=== PATIENT | male | born 1990 | race Caucasian/White ===

== ENCOUNTER 2020-12-25 11:13 | Day surgery (SDC) | payer SELFPAY ==
[2020-12-25] VITALS (11 sets, daily range): BP systolic 117–134; BP diastolic 46–93; PULSE 56–110; RESP 14–18; TEMP 36.1–36.4; O2SAT 93–100; BMI 29.1
--- NOTE | ~2020-12-25 | CT_ITS ---
EXAMINATION: CT ABDOMEN AND PELVIS WITHOUT CONTRAST CLINICAL INFORMATION: Left flank pain. COMPARISON: None TECHNIQUE: Multidetector volumetric imaging was performed from the superior aspect of the liver through the pubic symphysis. Sagittal and coronal reformatted images were obtained on the technologist's workstation. This CT examination was performed using dose optimization techniques as appropriate, variously including the following: *Automated exposure control *Adjustment of mA and/or kV according to patient size (this includes techniques or standardized protocols for targeted exams where dose is matched to indication/reason for exam; i.e. extremities or head) *Use of iterative reconstruction technique DLP: 625 mGy-cm FINDINGS: LUNG BASES: The visualized lung bases are unremarkable. LIVER, GALLBLADDER, AND BILIARY TREE: The liver is normal in size, shape, and attenuation. No focal hepatic lesion or biliary ductal dilatation is present. The gallbladder is unremarkable with no evidence of radiopaque gallstones, gallbladder wall thickening, or obvious pericholecystic inflammatory changes. PANCREAS: Unremarkable. SPLEEN: Unremarkable. ADRENAL GLANDS: Unremarkable. KIDNEYS AND URETERS: The kidneys are normal in size, shape, and attenuation. No hydronephrosis, hydroureter, or calculi seen. No perinephric stranding. BLADDER: Unremarkable. GASTROINTESTINAL TRACT: No bowel wall thickening or associated inflammatory change. No small or large bowel obstruction. The appendix is dilated with fluid and stool (coronal image 28/78, axial image 64/94). Minimal if any adjacent inflammatory change. Findings could indicate very early appendicitis. No extraluminal air or organized fluid collection to suggest perforation or abscess formation. PERITONEAL CAVITY: No intra-abdominal free air or free fluid. No intra-abdominal mass or organized fluid collection/abscess formation. ABDOMINAL WALL: No significant hernia is appreciated. LYMPH NODES: Normal. VASCULAR: Unremarkable. PELVIC VISCERA: The prostate and seminal vesicles are unremarkable. OSSEOUS STRUCTURES: Transitional anatomy with sacralization of L1. No acute osseous abnormality. CT/CT abdomen pelvis wo con IMPRESSION: Dilatation of the appendix which is fluid-filled with internal stool. Minimal if any adjacent inflammatory change. Findings could indicate very early appendicitis. No evidence of perforation or abscess formation.
--- NOTE | 2020-12-25 13:05 | ED_ITS ---
HPI - Abdominal Pain General Chief Complaint: Abdominal Pain Stated Complaint: ABD PAIN Time Seen by Provider: 12/25/20 13:05 Source: patient Mode of arrival: EMS Limitations: no limitations History of Present Illness MD elicited complaint: abdominal pain Pertinent past history: none Onset (ago): hour(s) (3) Pain Consistency: constant Location: RLQ, LLQ and L flank Severity: moderate Quality: stabbing Radiation: none Migration to: no migration Exacerbating factors: movement Relieving factors: nothing Associated symptoms: nausea and vomiting Related Data Home Medications Medication Instructions Recorded Confirmed No Known Home Meds 12/25/20 12/25/20 Allergies Allergy/AdvReac Type Severity Reaction Status Date / Time Penicillins Allergy Hives Verified 12/25/20 11:34 Review of Systems Review of Systems Constitutional : No Weight loss, No Fever, No Chills ENT/Mouth : No sore throat, No Rhinorrhea Eyes: No Swelling, No Redness Cardiovascular : No Chest Pain, No SOB, NoEdema Respiratory : No Cough, No Sputum, No Wheezing Gastrointestinal : Positive Nausea, Positive Vomiting, no Diarrhea, positive abdominal Pain, No Hematochezia, No Melena Genitourinary : No Dysuria, No Urinary Frequency, No Hematuria, No Urgency Musculoskeletal : No joint pain, No Myalgias, No Joint Swelling Skin : No Skin Lesions, No rash Neuro : No Weakness, No Numbness, No Dizziness, No Headache Psych : No Anxiety/Panic, No Depression Heme/Lymph: No Bruising, No Lymphadenopathy Endocrine : No Polyuria, No Polydipsia All other systems reviewed and are negative. Physical Exam Vital Signs: Vital Signs: Last Vital Signs Temp 97.4 F 12/25/20 11:34 Pulse 56 12/25/20 13:30 Resp 16 12/25/20 13:30 BP 123/59 L 12/25/20 13:30 Pulse Ox 99 12/25/20 13:30 Body Mass Index 29.1 Appearance: Alert. Oriented X3. in pain mild acute distress. Eyes: Pupils equal, round and reactive to light. ENT: Pharynx normal. Neck: Normal inspection. Neck supple. CVS: Normal heart rate and rhythm. Pulses normal. Respiratory: No respiratory distress. Breath sounds normal. Abdomen: Soft and moderate ttp in LLQ and RLQ no rebound mild vol guarding Skin: Skin warm and dry. Normal skin color. Normal skin turgor. Extremities: No lower extremity edema. No calf ttp Neuro: Oriented X 3. No motor deficit. No sensory deficit. Course Course Course Narrative: message sent to Dr. Still given CT scan plan for OR - allergy to PCN given flagyl/levofloxacin MDM - Abdominal Pain MDM Narrative Medical decision making narrative: 30 yo male abrupt onset lower abdominal pain and n/v - very tender in LLQ and RLQ with L flank pain - somewhat unusual for appendicitis at this time labs, UA, IVF, CT scan for renal colic, IV morphine for pain dispo per results and findings. Differential Diagnosis Differential diagnosis: Likely abdominal pain, acute appendicitis, calculus of kidney and diverticulitis Lab Data Result diagrams: 12/25/20 13:27 12/25/20 13:27 Labs: Lab Results 12/25/20 12/25/20 12/25/20 Range/Units 13:27 13:27 14:09 WBC 22.8 H (4.8-10.8) X10*3/uL RBC 4.25 L (4.60-5.80) X10*6/uL Hgb 13.6 L (14.0-18.0) g/dl Hct 40.3 L (42-52) % MCV 94.8 (80-98) fL MCH 32.0 (27.0-33.0) pg MCHC 33.7 (31.0-36.0) g/dl RDW 11.8 (11.0-16.0) % Plt Count 303 (160-400) X10*3/uL MPV 9.7 (9.4-12.4) fL Immature Gran % (Auto) 0.6 H (0.0-0.4) % Neut % (Auto) 89.9 H (45-73) % Lymph % (Auto) 5.3 L (20-40) % [place] % (Auto) 4.0 (2-11) % Eos % (Auto) 0.0 (0-4) % Baso % (Auto) 0.2 (0-2) % Lymph # (Auto) 1.2 (1.2-4.9) X10*3/uL [place] # (Auto) 0.9 (0.1-1.2) X10*3/uL Eos # (Auto) 0.0 (0.0-0.4) X10*3/uL Baso # (Auto) 0.1 (0.0-0.2) X10*3/uL Abs Immat Gran (auto) 0.13 H (0.00-0.03) X10*3/uL Absolute Neuts (auto) 20.5 H (2.0-8.3) X10*3/uL Absolute Nucleated RBC 0.000 (0.0-0.012) X10*3/uL Nucleated RBC % (auto) 0.0 (0.0-0.2) /100WBC Smear Tech's Comments VERIFIED PT (9.9-13.0) SEC INR (0.9-1.1) APTT (24.1-38.0) SEC Sodium 138 (135-145) mmol/L Potassium 3.6 (3.3-5.1) mmol/L Chloride 103 (96-108) mmol/L Carbon Dioxide 22 (22-29) mmol/L Anion Gap 17 (12-20) BUN 13 (9-16) mg/dL Creatinine 0.85 (0.5-1.4) mg/dL Estim Creat Clear Calc 150.7 Estimated GFR > 60 Random Glucose 107 (60-115) mg/dL Lactic Acid 1.3 (0.5-2.0) mmol/L Calcium 9.4 (8.4-10.2) mg/dL Magnesium 2.1 (1.6-2.6) mg/dL Total Bilirubin 0.9 (0.0-1.0) mg/dL Direct Bilirubin 0.3 (0.0-0.5) mg/dL AST 89 H (5-37) U/L ALT 49 H (0-40) U/L Alkaline Phosphatase 58 (39-117) U/L Total Protein 7.5 (6.5-8.0) g/dL Albumin 4.5 (3.5-5.0) g/dL Lipase 13 (8-78) U/L COVID-19 ([facility]) (Negative) COVID-19 Clin Com 12/25/20 12/25/20 Range/Units 14:09 14:32 WBC (4.8-10.8) X10*3/uL RBC (4.60-5.80) X10*6/uL Hgb (14.0-18.0) g/dl Hct (42-52) % MCV (80-98) fL MCH (27.0-33.0) pg MCHC (31.0-36.0) g/dl RDW (11.0-16.0) % Plt Count (160-400) X10*3/uL MPV (9.4-12.4) fL Immature Gran % (Auto) (0.0-0.4) % Neut % (Auto) (45-73) % Lymph % (Auto) (20-40) % [place] % (Auto) (2-11) % Eos % (Auto) (0-4) % Baso % (Auto) (0-2) % Lymph # (Auto) (1.2-4.9) X10*3/uL [place] # (Auto) (0.1-1.2) X10*3/uL Eos # (Auto) (0.0-0.4) X10*3/uL Baso # (Auto) (0.0-0.2) X10*3/uL Abs Immat Gran (auto) (0.00-0.03) X10*3/uL Absolute Neuts (auto) (2.0-8.3) X10*3/uL Absolute Nucleated RBC (0.0-0.012) X10*3/uL Nucleated RBC % (auto) (0.0-0.2) /100WBC Smear Tech's Comments PT 12.3 (9.9-13.0) SEC INR 1.1 (0.9-1.1) APTT 37.8 (24.1-38.0) SEC Sodium (135-145) mmol/L Potassium (3.3-5.1) mmol/L Chloride (96-108) mmol/L Carbon Dioxide (22-29) mmol/L Anion Gap (12-20) BUN (9-16) mg/dL Creatinine (0.5-1.4) mg/dL Estim Creat Clear Calc Estimated GFR Random Glucose (60-115) mg/dL Lactic Acid (0.5-2.0) mmol/L Calcium (8.4-10.2) mg/dL Magnesium (1.6-2.6) mg/dL Total Bilirubin (0.0-1.0) mg/dL Direct Bilirubin (0.0-0.5) mg/dL AST (5-37) U/L ALT (0-40) U/L Alkaline Phosphatase (39-117) U/L Total Protein (6.5-8.0) g/dL Albumin (3.5-5.0) g/dL Lipase (8-78) U/L COVID-19 ([facility]) Negative (Negative) COVID-19 Clin Com See Note Critical Care Time Critical Care Time Critical Care Time: Yes Total Critical Care Time: 35 Attestation: IVF, IV pain medications, medical consult I attest to this time spent taking care of the patient Discharge Plan Discharge Clinical Impression: Acute appendicitis, Leukocytosis Patient Disposition: Admitted As Inpatient [facility] Past Medical History Medical History No pertinent past medical history Social History Social History Advance Directives: Yes Advance Directives Information Provided: Yes Advance Directives on File: No
[2020-12-25] MEDS: 0.9 % Sodium Chloride 1,000 ML 999 ML IVCONT (13:27)
[2020-12-25] MEDS: Morphine Sulfate 4 MG/ML CARTRIDGE IVPUSH (13:27)
[2020-12-25] MEDS: Ketorolac Tromethamine 15 MG/ML VIAL IVPUSH (13:27)
[2020-12-25] MEDS: ondansetron HCL 4 MG/2 ML VIAL IVPUSH ×2 (13:27→15:28)
[2020-12-25 13:46] LABS: Basophils Absolute Auto 0.1 X10*3/uL (0.0-0.2); Basophils Percent Auto 0.2 % (0-2); Hematocrit 40.3 % (42-52); Hemoglobin 13.6 g/dl (14.0-18.0); Imm Gran Abs Auto 0.13 X10*3/uL (0.00-0.03); Imm Gran Pct Auto 0.6 % (0.0-0.4); Lymphocytes Absolute Auto 1.2 X10*3/uL (1.2-4.9); Lymphocytes Percent Auto 5.3 % (20-40); MANUAL DIFF FLAG SCAN; Mean Corpuscular HGB Conc 33.7 g/dl (31.0-36.0); Mean Corpuscular Volume 94.8 fL (80-98); Mean Platelet Volume 9.7 fL (9.4-12.4); Monocytes Absolute Auto 0.9 X10*3/uL (0.1-1.2); Neutrophils Absolute Auto 20.5 X10*3/uL (2.0-8.3); Neutrophils Percent Auto 89.9 % (45-73); Platelet Count 303 X10*3/uL (160-400); Red Blood Count 4.25 X10*6/uL (4.60-5.80); Red Cell Distribution Width 11.8 % (11.0-16.0); SCAN SMEAR FLAG 1; White Blood Count 22.8 X10*3/uL (4.8-10.8)
[2020-12-25 14:21] LABS: SLIDE REVIEW VERIFIED
[2020-12-25 14:22] LABS: Alanine Aminotransferase 49 U/L (0-40); Albumin Level 4.5 g/dL (3.5-5.0); Alkaline Phosphatase 58 U/L (39-117); Anion Gap 17 (12-20); Aspartate Amino Transferase 89 U/L (5-37); Bilirubin Direct 0.3 mg/dL (0.0-0.5); Bilirubin Total 0.9 mg/dL (0.0-1.0); Blood Urea Nitrogen 13 mg/dL (9-16); Calcium 9.4 mg/dL (8.4-10.2); Carbon Dioxide 22 mmol/L (22-29); Chloride 103 mmol/L (96-108); Creatinine Clr Calc Pharmacy 150.7; Estimated Glomerular Filt Rate > 60; Glucose Random 107 mg/dL (60-115); Lipase 13 U/L (8-78); Magnesium 2.1 mg/dL (1.6-2.6); Potassium 3.6 mmol/L (3.3-5.1); Sodium 138 mmol/L (135-145); Total Protein 7.5 g/dL (6.5-8.0)
--- NOTE | 2020-12-25 14:32 | PHA.MEDREC ---
MED REC COMPLETE, PATIENT NOT ON ANY MEDICATIONS Pharmacy Consult ? Medication Reconciliation Pharmacy has completed the medication reconciliation.
[2020-12-25] MEDS: metroNIDAZOLE/NS 500 MG/100 ML PIGGYBACK 100 MG IV (14:33)
[2020-12-25 14:35] LABS: COVID-19 Test Negative (Negative)
[2020-12-25 14:42] LABS: Lactic Acid 1.3 mmol/L (0.5-2.0)
[2020-12-25 14:55] LABS: INTERNATIONAL NORM RATIO 1.1 (0.9-1.1); Prothrombin Time 12.3 SEC (9.9-13.0)
[2020-12-25 14:58] LABS: Partial Thromboplastin Time 37.8 SEC (24.1-38.0)
--- NOTE | 2020-12-25 15:07 | P.HPGS_ITS ---
History of Present Illness History of Present Illness Date of Service: 12/25/20 Chief complaint: ABD PAIN Narrative: Nato Lam is a 30 year old male presenting with complaints of abdominal pain in the lower abdomen. The pain began suddenly approximately 9 a.m. this morning in the lower abdomen and periumbilical region. The pain was initially sharp and is now radiating to the left and right lower quadrants. He he reports nausea and vomiting and vomited in the waiting room today. He was peripherally healthy prior to this episode. He reports feeling hot and feverish with chills. He denies any sick contacts. He presented to the emergency department was noted to have tenderness in the right lower quadrant. WBC was markedly elevated at [address] of the abdomen revealed a distended appendix without evidence of perforation or abscess. Findings were suggestive of an early appendicitis. He is admitted to the surgical service for further management of the acute appendicitis. Review of Systems Review of Systems: Yes all other systems are reviewed and are negative Constitutional: Constitutional: Reports chills, Reports fever(s) and Reports poor appetite Cardiovascular: Cardiovascular: Denies chest pain Respiratory: Respiratory: Denies chest congestion and Denies cough Gastrointestinal: Gastrointestinal: Reports abdominal pain, Reports bloating, Denies diarrhea, Denies loose stools, Reports nausea and Reports vomiting Genitourinary: Genitourinary: Reports no additional male genitourinary complaints Musculoskeletal: Musculoskeletal: Reports no additional musculoskeletal complaints Integumentary/Breasts: Skin/Breast: Reports system reviewed and no additional complaints, except as docu PMFSH Past Medical History Medical History No pertinent past medical history Social History Social History Advance Directives: Yes Advance Directives Information Provided: Yes Advance Directives on File: No Meds Allergies Allergy/AdvReac Type Severity Reaction Status Date / Time Penicillins Allergy Hives Verified 12/25/20 11:34 Active Medications: Current Medications Generic Name Dose Route Start Last Admin Trade Name Freq PRN Reason Stop Dose Admin Levofloxacin 500 mg in 100 mls @ 100 mls/hr 12/25/20 14:20 Levaquin IV 12/25/20 15:19 ONCE ONE Metronidazole 500 mg in 100 mls @ 100 mls/hr 12/25/20 14:20 12/25/20 14:33 Flagyl IV 12/25/20 15:19 100 mls/hr ONCE ONE Administration Lactated Ringer's 1,000 mls @ 100 mls/hr 12/25/20 15:15 Lr IVCONT .Q10H [facility] Pharmacy Consult 1 each 12/25/20 14:23 Consult Rx Perform Med Rec MISCELLANE ONCE PRN Consult order Home Medications Medication Instructions Recorded Confirmed Last Taken Type No Known Home Meds 12/25/20 12/25/20 Unknown History Physical Exam Vital Signs: Vital Signs: Last Vital Signs Temp 97.4 F 12/25/20 11:34 Pulse 56 12/25/20 13:30 Resp 16 12/25/20 13:30 BP 123/59 L 12/25/20 13:30 Pulse Ox 99 12/25/20 13:30 Body Mass Index 29.1 Const: General: in distress and ill appearing Nutritional Appearance: well nourished Orientation/consciousness: patient oriented x3 Limitations: no limitations Neck: Neck: Yes no lymphadenopathy and Yes trachea midline Resp: Effort & Inspection: normal respiratory effort Auscultation: clear to auscultation bilaterally Cardio: Rate: regular rate Rhythm: regular rhythm Heart sounds: S1 normal heart sound present and S2 normal heart sound present GI: Inspection: Yes normal to inspection Palpation (GI): Soft to palpation and Tenderness to palpation present (GI) in the RLQ and at McBurney's point Percussion: Yes normal to percussion Auscultation: normal bowel sounds Rectal Exam - Male: Yes deferred Skin: General skin exam: no rashes or lesions noted Neuro: General: patient oriented x3 Extrem: General: Yes no clubbing, cyanosis or edema Results Results Labs: Short CBC 12/25/20 Range/Units 13:27 WBC 22.8 H (4.8-10.8) X10*3/uL Hgb 13.6 L (14.0-18.0) g/dl Hct 40.3 L (42-52) % Plt Count 303 (160-400) X10*3/uL BMP 12/25/20 13:27 Sodium 138 Potassium 3.6 Chloride 103 Carbon Dioxide 22 BUN 13 Creatinine 0.85 Calcium 9.4 Liver Function 12/25/20 Range/Units 13:27 Total Bilirubin 0.9 (0.0-1.0) mg/dL Direct Bilirubin 0.3 (0.0-0.5) mg/dL AST 89 H (5-37) U/L ALT 49 H (0-40) U/L Alkaline Phosphatase 58 (39-117) U/L Albumin 4.5 (3.5-5.0) g/dL Abdomen CT scan report/results: image reviewed Assessment and Plan (1) Acute appendicitis: Qualifiers: Acute appendicitis type: other Qualified Code(s): K35.890 - Other acute appendicitis without perforation or gangrene Status: Acute 30-year-old male patient presenting with acute onset of abdominal pain found to have a thickened dilated appendix and a markedly elevated WBC. On examination he is tender in the right lower quadrant with findings consistent with acute appendicitis. We discussed management with IV antibiotics verses laparoscopic or possible open appendectomy. After discussion of the procedure, risks, and alternatives, he consents to the laparoscopic or possible open appendectomy. He has been added to the operative schedule for today. Quality Stroke Does the patient have a stroke diagnosis?: No VTE Prior VTE?: No VTE Risk Level:: Surgical - low VTE Device Contraindication: N/A - Device Ordered VTE Drug Contraindication: Treatment Not Indicated Procedures Date of Service Date of Service: 12/25/20
[2020-12-25] MEDS: levoFLOXacin/D5W 500 MG/100 ML PIGGYBACK 100 MG IV (15:27)
--- NOTE | 2020-12-25 16:38 | P.CONAN_ITS ---
[facility] Active Problems Active Problems: All Active Problems (Updated 12/25/20 @ 15:49 by Mary peoples DO) Acute appendicitis (Acute) Leukocytosis (Acute) Past Medical History Medical History No pertinent past medical history Surgical History History of Problems with Anesthesia: No Social History Social History Advance Directives: Yes Advance Directives Information Provided: Yes Advance Directives on File: No Meds Allergies Allergy/AdvReac Type Severity Reaction Status Date / Time Penicillins Allergy Hives Verified 12/25/20 11:34 Active Medications: Current Medications Generic Name Dose Route Start Last Admin Trade Name Freq PRN Reason Stop Dose Admin Lactated Ringer's 1,000 mls @ 100 mls/hr 12/25/20 15:15 Lr IVCONT .Q10H [facility] Pharmacy Consult 1 each 12/25/20 14:23 Consult Rx Perform Med Rec MISCELLANE ONCE PRN Consult order Home Medications Medication Instructions Recorded Confirmed Last Taken Type No Known Home Meds 12/25/20 12/25/20 Unknown History Exam Exam Date and Time: December 25, 2020 1638 Height,Weight and Vital Signs: Height 5 ft 11 in Weight 94.801 kg Last Vital Signs Temp 97.4 F 12/25/20 11:34 Pulse 56 12/25/20 13:30 Resp 16 12/25/20 13:30 BP 123/59 L 12/25/20 13:30 Pulse Ox 99 12/25/20 13:30 Pertinent Lab Results Pertinent Lab Results: Laboratory Tests 12/25/20 12/25/20 12/25/20 13:27 13:27 14:09 WBC 22.8 H RBC 4.25 L Hgb 13.6 L Hct 40.3 L MCV 94.8 MCH 32.0 MCHC 33.7 RDW 11.8 Plt Count 303 MPV 9.7 Immature Gran % (Auto) 0.6 H Neut % (Auto) 89.9 H Lymph % (Auto) 5.[address] [place] % (Auto) 4.0 Eos % (Auto) 0.0 Baso % (Auto) 0.2 Lymph # (Auto) 1.2 [place] # (Auto) 0.9 Eos # (Auto) 0.0 Baso # (Auto) 0.1 Abs Immat Gran (auto) 0.13 H Absolute Neuts (auto) 20.5 H Absolute Nucleated RBC 0.000 Nucleated RBC % (auto) 0.0 Smear Tech's Comments VERIFIED PT INR APTT Sodium 138 Potassium 3.6 Chloride 103 Carbon Dioxide 22 Anion Gap 17 BUN 13 Creatinine 0.85 Estim Creat Clear Calc 150.7 Estimated GFR > 60 Random Glucose 107 Lactic Acid 1.3 Calcium 9.4 Magnesium 2.1 Total Bilirubin 0.9 Direct Bilirubin 0.3 AST 89 H ALT 49 H Alkaline Phosphatase 58 Total Protein 7.5 Albumin 4.5 Lipase 13 COVID-19 ([facility]) COVID-19 [facility] 12/25/20 12/25/20 14:09 14:32 WBC RBC Hgb Hct MCV MCH MCHC RDW Plt Count MPV Immature Gran % (Auto) Neut % (Auto) Lymph % (Auto) [place] % (Auto) Eos % (Auto) Baso % (Auto) Lymph # (Auto) [place] # (Auto) Eos # (Auto) Baso # (Auto) Abs Immat Gran (auto) Absolute Neuts (auto) Absolute Nucleated RBC Nucleated RBC % (auto) Smear Tech's Comments PT 12.3 INR 1.1 APTT 37.8 Sodium Potassium Chloride Carbon Dioxide Anion Gap BUN Creatinine Estim Creat Clear Calc Estimated GFR Random Glucose Lactic Acid Calcium Magnesium Total Bilirubin Direct Bilirubin AST ALT Alkaline Phosphatase Total Protein Albumin Lipase COVID-19 ([facility]) Negative COVID-19 Clin Com See Note Airway Mallampati Class: II TM Dist: >3cm Loose/Missing/Broken Teeth: No Heart: RRR Lungs: CTA Assessment and Plan Assessment Anesthesia Assessment: Anesthesia Plan Discussed and Chart Reviewed Final Anesthetic Review History of Problems with Anesthesia: No NPO: Yes ASA Class: I and Emergency Final Preanesthetic Review: Meds/Allgs Chart Reviewed, Consent Obtained/Reviewed and Anes Risks/Benef Reviewed Patient Risk: Low Procedure Risk: Low Anesthetic Plan Anesthetic Plan: GA Disposition: Standard PACU
--- NOTE | 2020-12-25 17:12 | W.PM.OPN ---
Operative Note Operative Note Date of Service: 12/25/20 Narrative: Preoperative diagnosis: Acute appendicitis Postoperative diagnosis: Same Procedure: Laparoscopic appendectomy Surgeon: Adis Still MD [employer] Estimator: None Anesthesia: General endotracheal Indications for procedure: 30-year-old male patient presenting with abdominal pain in the right lower quadrant since 09:00 this morning. Patient was found to be tender in the right lower quadrant over McBurney's point. Workup with CT of the abdomen revealed a markedly dilated appendix no evidence of perforation or abscess. Operative findings: Markedly dilated and inflamed appendix without evidence of abscess or perforation. Specimen: Appendix Estimated blood loss: 1 cc Complications: None Procedure details: Patient was brought to the OR and placed in a supine position. After administering general anesthesia the patient's abdomen was prepped with ChloraPrep and draped in a sterile fashion. A surgical time-out was called and consent confirmed. Patient received preoperative antibiotics and Venodyne boots were in place. Local anesthesia consisting of 0.25% Sensorcaine with epinephrine was infiltrated in periumbilical region. A 5 mm incision was made below the umbilicus and carried down through subcutaneous tissue. A Veress needle was then inserted while elevating abdominal cavity with towel clips. After a positive drop test the abdomen was insufflated to a pressure of 15 mm of mercury. The Veress needle was removed and a 5 mm trocar inserted. The camera was then inserted in the abdomen explored. A 2nd 5 mm trocars placed in the lower midline. A 12 mm trocar was then placed in the left lower quadrant. The patient was then placed in a Trendelenburg position and rotated to the left. The appendix was identified in the right lower quadrant and brought up using blunt dissecting clamps. The mesentery of the appendix was then divided using the LigaSure. The appendiceal artery was cauterized and divided using the LigaSure. Dissection was continued down to the base of the cecum. An Endo-MARIANO stapler with a purple reload was then used to divide the appendix at the base with the cecum. The appendix was then placed in Endo-Catch bag and brought out through the left lower quadrant incision. The abdomen was then irrigated with saline solution and suctioned dry. Wounds were checked for hemostasis. CO2 was then evacuated from the abdominal cavity and all trocars removed. Fascia was closed in the left lower quadrant incision using a [id number] 0 Polysorb suture. Skin was closed at all incisions using a subcuticular 4-0 Polysorb suture. Steri-Strips 2 x 2 gauze and Tegaderm were then applied. The patient tolerated the procedure well. Sponge, instrument, needle counts reported as correct. The patient was transferred to PACU in stable condition.
[2020-12-25] MEDS: Dextrose 5 % and Lactated Ring 1,000 ML 125 ML IVCONT (18:38)
[2020-12-25] MEDS: oxyCODONE HCl Immed Release 5 MG TABLET PO (22:47)
[2020-12-26] VITALS: BP 113/56; PULSE 84; RESP 16; TEMP 36.6; O2SAT 97
[2020-12-26] MEDS: Dextrose 5 % and Lactated Ring 1,000 ML 125 ML IVCONT (02:41)
[2020-12-26 04:00] VITALS: BP 103/49; PULSE 67; RESP 16; TEMP 36.6; O2SAT 98
[2020-12-26 07:43] VITALS: BP 137/60; PULSE 69; RESP 17; TEMP 36.8; O2SAT 99
--- NOTE | 2020-12-26 07:55 | PM.PNGS ---
Subjective Subjective Date of Service: 12/26/20 <Suzi Betancur PA-C - Last Filed: 12/26/20 08:10> 12/26/20 <Adis Still MD - Last Filed: 12/26/20 08:30> Interval history: Feels much better. Has some LLQ pain at incision site. Tolerating liquids- has not eaten yet. OOB and ambulating. <Suzi Betancur PA-C - Last Filed: 12/26/20 08:10> Physical Exam Vital Signs: Vital Signs: Last Vital Signs Temp 98.2 F 12/26/20 07:43 Pulse 69 12/26/20 07:43 Resp 17 12/26/20 07:43 BP 137/60 12/26/20 07:43 Pulse Ox 99 12/26/20 07:43 Body Mass Index 29.1 <Suzi Betancur PA-C - Last Filed: 12/26/20 08:10> Const: General: comfortable, no acute distress and alert <Suzi Betancur PA-C - Last Filed: 12/26/20 08:10> Orientation/consciousness: patient oriented x3 <Suzi Betancur PA-C - Last Filed: 12/26/20 08:10> Resp: Effort & Inspection: normal respiratory effort <Suzi Betancur PA-C - Last Filed: 12/26/20 08:10> GI: Inspection: No distended and Yes incision (dressings c/d/i) <Suzi Betancur PA-C - Last Filed: 12/26/20 08:10> Palpation (GI): Soft to palpation, Tenderness to palpation present (GI) (LLQ incision), no guarding and not rigid <Suzi Betancur PA-C - Last Filed: 12/26/20 08:10> Percussion: Yes normal to percussion <YOKASTA Lares Last Filed: 12/26/20 08:10> Skin: General skin exam: no rashes or lesions noted <Suzi Betancur PA-C - Last Filed: 12/26/20 08:10> Neuro: General: patient oriented x3 <Suzi Betancur PA-C - Last Filed: 12/26/20 08:10> Extrem: General: Yes normal exam except as noted <Suzi Betancur PA-C - Last Filed: 12/26/20 08:10> Procedures Date of Service Date of Service: 12/26/20 <Suzi Betancur PA-C - Last Filed: 12/26/20 08:10> Progress Note: A&P Assessment and plan (1) Acute appendicitis: Status: Acute <Suzi Betancur PA-C - Last Filed: 12/26/20 08:10> (2) S/P laparoscopic appendectomy: Status: Acute <Suzi Betancur PA-C - Last Filed: 12/26/20 08:10> Assessment and Plan: POD#1 status post laparoscopic appendectomy. Findings were consistent with acute appendicitis. The patient remains hemodynamically stable this morning and is reasonably comfortable with current pain medications. He reports ambulating in the hallways earlier today without difficulty. If he is able to tolerate breakfast this morning he may be discharged to home with follow-up in the office in approximately 1 week. Avoid lifting greater than 10 lb for the next 2 weeks. He may resume a regular diet. <Adis Still MD - Last Filed: 12/26/20 08:30> Fall Risk Details Current Medications: Current Medications Generic Name Dose Route Start Last Admin Trade Name Freq PRN Reason Stop Dose Admin Acetaminophen 650 mg 12/25/20 18:28 Acetaminophen 325 Mg Tablet PO Q6H PRN Pain, Mild (Pain Scale 1-3) Dextrose/Lactated Ringer's 1,000 mls @ 125 mls/hr 12/25/20 18:28 12/26/20 02:41 D5lr IVCONT 125 mls/hr .Q8H TUSHAR Administration Morphine Sulfate 2 mg 12/25/20 18:28 Morphine Sulfate 2 Mg/Ml Cartridge IVPUSH Q3H PRN Pain, Severe (Pain Scale 7-10) Protocol Ondansetron HCl 4 mg 12/25/20 18:28 Ondansetron Hcl 4 Mg/2 Ml Vial IVPUSH Q8H PRN Nausea and Vomiting Oxycodone HCl 5 mg 12/25/20 18:28 12/25/20 22:47 Oxycodone Hcl Immed Release 5 Mg Tablet PO 5 mg Q4H PRN Administration Pain, Moderate (Pain Scale 4-6 Pharmacy Consult 1 each 12/25/20 14:23 Consult Rx Perform Med Rec MISCELLANE ONCE PRN Consult order Sodium Chloride 3 ml 12/26/20 00:00 12/26/20 07:50 0.9 % Sodium Chloride Flush 3 Ml Syringe IVFLUSH Not Given QSHIFT TUSHAR Zolpidem Tartrate 5 mg 12/25/20 18:28 Zolpidem Tartrate 5 Mg Tablet PO BEDTIME PRN Insomnia <Suzi Betancur PA-C - Last Filed: 12/26/20 08:10> Time Spent With Patient Time: Total time spent is greater than 50% in coordination of care (as documented) at patient's floor/unit and/or counseling patient: <Suzi Betancur PA-C - Last Filed: 12/26/20 08:10> Time with patient: 15 - 24 minutes <Suzi Betancur PA-C - Last Filed: 12/26/20 08:10> Quality Stroke Does the patient have a stroke diagnosis?: No <Suzi Betancur PA-C - Last Filed: 12/26/20 08:10> VTE Prior VTE?: No <Suzi Betancur PA-C - Last Filed: 12/26/20 08:10> VTE Risk Level:: Surgical - low <YOKASTA Lares Last Filed: 12/26/20 08:10> VTE Device Contraindication: N/A - Device Ordered <YOKASTA Lares Last Filed: 12/26/20 08:10> VTE Drug Contraindication: Treatment Not Indicated <YOKASTA Lares Last Filed: 12/26/20 08:10>
--- NOTE | 2020-12-26 09:18 | HO.POSTANES ---
Post Anesthesia Evaluation Post Anesthesia Evaluation Vital Signs: Vital Signs Temp Pulse Resp BP Pulse Ox 12/26/20 07:43 98.2 F 69 17 137/60 99 12/26/20 04:00 97.9 F 67 16 103/49 L 98 12/26/20 00:00 97.8 F 84 16 113/56 L 97 Anesthesia: General Endotracheal-GETA Mental Status: Awake Pain Control: Satisfactory Nausea/Vomiting: None Hydration: Adequate Anesthesia-Related Issues: No Anes. Related Issues
[2020-12-26] MEDS: oxyCODONE HCl Immed Release 5 MG TABLET PO (10:48)
--- NOTE | 2020-12-26 10:50 | PC.NURSE ---
Skin assessment completed today. Patient has a surgical incision to abdomen. C/D/I. No other skin issues noted at this time.
[2020-12-26 12:00] VITALS: RESP 18
--- NOTE | 2020-12-26 12:26 | MHC.CM.PN ---
PATIENT IS DISCHARGED HOME WITH NO SERVICE NEEDS. RN AWARE OF PLAN.
--- NOTE | 2020-12-26 12:31 | MHC.CM.PN ---
PATIENT IS INDEPENDENT WITH HIS ADLS. HE HAS NO PCP. PROVIDER LIST OFFERED FOR PATIENT TO CHOOSE FROM, LIST IF HE LIKES. PATIENT IS AWARE THAT HE IS DC. SEAMAN 12/26 IN CHART
--- NOTE | 2020-12-27 16:44 | P.DS_ITS ---
DS: Providers Provider Date of Service: 12/26/20 Date of admission: 12/25/20 15:04 Date of discharge: 12/26/20 Primary care physician: Marcela Physician Admitting clinician: Adis Still Discharging clinician: Adis Still DS: Diagnosis Discharge Diagnosis (1) Acute appendicitis: Status: Acute (2) S/P laparoscopic appendectomy: Status: Acute DS: Medications Discharge Medications Home Medications: Previous Rx's Medication Instructions Recorded oxycodone 5 mg tablet 5 mg PO Q6H PRN #14 tab 12/26/20 DS: Summary Hospital Course Hospital Course: 30-year-old male patient presenting with the onset of abdominal pain in the low er abdomen including left and right lower quadrants which began the morning of admission, 12/25/2020. The pain was associated with nausea and vomiting as well as fever and chills. He subsequently presented to the emergency department and was noted to be tender in the right lower quadrant. Laboratories revealed an elevated WBC. A CT of the abdomen and pelvis revealed a thickened appendix filled with fluid but no evidence of perforation or abscess. Surgical consultation was requested. On examination the patient was found to be a well-nourished well-developed male in no acute distress. Examination revealed tender right lower quadrant over McBurney's point with localized rebound. Findings were suggestive of acute appendicitis. After discussion of the CT findings, recommendation was made for a laparoscopic or possible open appendectomy. Patient consented to the procedure and he was subsequently taken to the OR on the day of admission for a laparoscopic appendectomy. Findings were consistent with acute appendicitis. He tolerated the procedure well and was transferred to PACU postoperatively. He was observed over the next 24 hours and remained hemodynamically stable. He was started on a regular diet which he tolerated well without nausea or vomiting. He was able to ambulate independently without assistance. The patient was discharged to home in stable condition on 12/26/2020. He was instructed to avoid lifting greater than 10 lb for the next 2 weeks. He may resume a regular diet without restrictions. I have asked him to return to the office in approximately 1 week for wound examination. He expressed understanding and agrees with the plan. He should call for fever, chills, nausea, vomiting, increased abdominal pain, or other abdominal complaints. Time Spent with Patient Time attestation: Total time spent providing and/or coordinating discharge services: Discharge coordination time: Less than 30 minutes Quality: Stroke Does the patient have a stroke diagnosis?: No Physical Exam Vital Signs: Vital Signs: Last Vital Signs Temp 98.2 F 12/26/20 07:43 Pulse 69 12/26/20 07:43 Resp 18 12/26/20 12:00 BP 137/60 12/26/20 07:43 Pulse Ox 99 12/26/20 07:43 Body Mass Index 29.1 Const: General: healthy appearing and well developed Nutritional Appearance: well nourished Orientation/consciousness: patient oriented x3 Limitations: no limitations Resp: Effort & Inspection: normal respiratory effort Auscultation: clear to auscultation bilaterally GI: Other: Soft and nondistended, trocar incisions with intact dressings with no evidence of bleeding or discharge. Skin: General skin exam: no rashes or lesions noted Neuro: General: patient oriented x3 Extrem: General: Yes no clubbing, cyanosis or edema DS: Data Data Completed and Pending Pending studies at discharge: Pending at discharge 12/25/20 16:54 Surgical [PTH] Routine Labs on day of discharge: Preliminary micro results at discharge 12/25/20 14:09 Blood Culture - Preliminary Blood - Venous No growth after 48 hours. 12/25/20 14:09 Blood Culture - Preliminary Blood - Venous No growth after 48 hours. Discharge Plan Discharge Patient Disposition: Home, Self-Care Discharge Diagnosis: acute appendicitis Referrals: Adis Still MD [Physician] - 1 Week Physician,Unknown [Primary Care Provider] - 1 Week Discharge Medications: New oxycodone 5 mg tablet 5 mg PO Q6H PRN (Reason: pain) Qty: 14 RF: 0 Discharge Orders: Discharge Order (Routine); Ordered 12/26/20 Ordered By: Adis Still Diet: advance to usual diet Activity on Discharge: No heavy lifting Stand Alone Forms: Patient Portal Discharge page Activity Restrictions/Additional Instructions: If the incision area is tender, you may apply an ice pack for short intervals (No more than 20 minutes on, followed by at least 20 minutes off). Do not apply heat. Do not use creams, lotions, or topical antibiotics unless instructed to do so by your surgeon. These can cause infection or allergic reaction. Ok to shower. Remove clear dressings 3 days following your procedure. You have steri strips (small white cloth strips) covering your incision- these will fall off ~1 week. No heavy lifting (>10lbs)! Call Your Doctor If: -Your temperature exceeds 101.5? F -You experience excessive pain or swelling -You have an unexpected reaction to medication -You have excessive bleeding -You experience continued vomiting/nausea -Your incision begins to separate -Your incision shows signs of infection such as increased redness, swelling, excessive pain, drainage (light blood or clear fluid is normal) or heat Care Plan Goals: Return to baseline health and gradual return to activity following recovery period. Health Concerns: Acute appendicitis s/p lap appy Plan of Treatment: Discharge to home with follow up in office Assessment: Healthy 30 year old male admitted for acute appendicitis doing well s/p laparoscopic appendectomy. Discharge Date/Time: 12/26/20 13:46
== END 2020-12-26 13:46 | disposition home or self-care (01) ==
LOC: HO.ED 14:49 → HO.S3 12-26 07:28 → HO.SSS 04-18 12:24 → HO.S3 04-18 12:24 → HO.EDOVER 04-18 12:24
PROVIDERS: Emergency Provider Emergency Medicine; Visit Provider Surgery
PROC: 0DTJ4ZZ Resection of Appendix, Percutaneous Endoscopic Approach (ICD-10-PCS; CPT 44970; principal; 2020-12-25 15:00)
DX: K35.890 Other acute appendicitis without perforation or gangrene (principal); K66.0 Peritoneal adhesions (postprocedural) (postinfection); Z20.822 Contact with and (suspected) exposure to COVID-19; Z88.0 Allergy status to penicillin; Z79.891 Long term (current) use of opiate analgesic
CPT/HCPCS: 44970; 36415; 74176; 80048; 80076; 83605; 83690; 83735; 85025; 85610; 85730; 87040; 87635; 88304; 96361; 96365; 96375; 96376; 99285; 99291; J0330; J1100; J1170; J1885; J1956; J2250; J2270; J2405; J3010

== ENCOUNTER → 2021-01-02 08:49 | Outpatient (BNVA) | payer SELFPAY | PROVIDERS: Visit Provider Surgery | DX: Z48.815 Encounter for surgical aftercare following surgery on the digestive system (principal); Z87.19 Personal history of other diseases of the digestive system | CPT/HCPCS: 99212 ==